=== PATIENT | female | born 1960 | race Hispanic/Latino ===

== ENCOUNTER 2016-10-09 05:49 | Emergency (ER) | payer MEDICARE ==
[2016-10-09 06:16] VITALS: BP 125/96
== END 2016-10-09 06:30 | disposition left against medical advice (07) ==
LOC: ED 05:49
DX: Z00.8 Encounter for other general examination (principal); Z53.21 Procedure and treatment not carried out due to patient leaving prior to being seen by health care provider
CPT/HCPCS: 93005; 93010